=== PATIENT | female | born 1950 | race Caucasian/White ===

== ENCOUNTER 2023-07-13 15:53 | Emergency (ER) | payer MEDICARE, OTHER ==
[~2023-07-13] VITALS: Ht 152.4 cm; Wt 74.8 kg
[2023-07-13] MEDS ORDERED: LIDOCAINE HCL 2% 20 ML VIAL ONE (16:27)
[2023-07-13] MEDS ORDERED: LIDOCAINE HCL 1% 20 ML VIAL IJ ONE (16:30)
[2023-07-13] MEDS: LIDOCAINE HCL 2% 20 ML VIAL IJ ONE (17:25)
[2023-07-13] MEDS ORDERED: ONDANSETRON ODT 4 MG TAB.RAPDIS ONE (17:26)
[2023-07-13] MEDS: ONDANSETRON ODT 4 MG TAB.RAPDIS SL ONE (17:36)
[2023-07-13] MEDS ORDERED: ONDANSETRON 4 MG/2 ML VIAL ONE ×2 (18:23→18:24)
[2023-07-13] MEDS ORDERED: KETAMINE HCL 500 MG/10 ML INJ ONE (18:23)
[2023-07-13] MEDS: LORAZEPAM 2 MG/1 ML VIAL IV ONE (19:52)
[2023-07-13 21:14] VITALS: BP 136/70; O2SAT 97
[2023-07-15] MEDS ORDERED: KETAMINE HCL 500 MG/10 ML INJ IV ONE ×2 (09:30→09:45)
== END 2023-07-13 20:52 | disposition home or self-care (01) ==
LOC: ER 16:00
DX: S43.084A Other dislocation of right shoulder joint, initial encounter (principal); E78.00 Pure hypercholesterolemia, unspecified; E03.9 Hypothyroidism, unspecified; W18.39XA Other fall on same level, initial encounter; Y93.89 Activity, other specified; Y92.89 Other specified places as the place of occurrence of the external cause; Y99.8 Other external cause status
CPT/HCPCS: 99285; 23650; 96374; 73020 ×2; J3490 ×2; J2060; J2405 ×2; A4606; A4663; Q0162

== ENCOUNTER 2023-11-01 11:28 | Emergency (ER) | payer MEDICARE, OTHER ==
[~2023-11-01] VITALS: Ht 152.4 cm; Wt 74.8 kg
[2023-11-01] MEDS ORDERED: ONDANSETRON 4 MG/2 ML VIAL ONE (12:13)
[2023-11-01] MEDS ORDERED: KETOROLAC TROMETHAMINE 30 MG INJ ONE (12:13)
[2023-11-01] MEDS ORDERED: HYDROMORPHONE 1 MG/1 ML DISP.SYRIN ONE (12:14)
[2023-11-01] MEDS: HYDROMORPHONE 1 MG/1 ML DISP.SYRIN IV ONE (12:21)
[2023-11-01] MEDS: ONDANSETRON 4 MG/2 ML VIAL IV ONE (12:21)
[2023-11-01] MEDS: KETOROLAC TROMETHAMINE 30 MG INJ IVP ONE (12:21)
[2023-11-01 13:10] VITALS: BP 122/70; TEMP 97; O2SAT 99
== END 2023-11-01 13:10 | disposition home or self-care (01) ==
LOC: ER 11:28
DX: S43.084A Other dislocation of right shoulder joint, initial encounter (principal); E78.5 Hyperlipidemia, unspecified; E03.9 Hypothyroidism, unspecified; X58.XXXA Exposure to other specified factors, initial encounter; Y93.89 Activity, other specified; Y92.89 Other specified places as the place of occurrence of the external cause; Y99.8 Other external cause status
CPT/HCPCS: 99284; 23650; 96374; 96375; 73020 ×2; J1885; J2405; J1170